=== PATIENT | female | born 1990 ===

== ENCOUNTER 2019-04-25 05:26 | Emergency (ER) | payer SELFPAY ==
[2019-04-25] MEDS ORDERED: Lidocaine 4% Cream 5 GM TUBE w/ Tegaderm ONE (05:42)
[2019-04-25] MEDS ORDERED: Lidocaine 1% (PF) 30 ML VIAL ONE ×2 (06:22→06:29)
== END 2019-04-25 06:35 | disposition home or self-care (01) ==
LOC: ERS 05:26
DX: L02.01 Cutaneous abscess of face (principal); F17.210 Nicotine dependence, cigarettes, uncomplicated
CPT/HCPCS: 96372; 99283; J2001